=== PATIENT | female | born 1995 | race Two or more races ===

== ENCOUNTER → 2024-04-25 | Outpatient (CLI) | payer OTHER, SELFPAY ==
[2024-04-25 08:03] LABS: Collection Type, Urine Clean Catch; WBC,Urine 0 /hpf (0-5)
[2024-04-25 08:47] LABS: Basophils % (Auto) 0 % (0-2.5); Eosinophils # (Auto) 0.1 Thou/mm3 (0.0-0.5); Eosinophils % (Auto) 1 % (0-10); Hematocrit 41.4 % (36.0-46.0); Hemoglobin 14.2 g/dL (12.0-16.0); Immature Granulocytes % (Auto) 1 % (0-0); Immature Granulocytes Auto 0.04 Thou/mm3 (0.00-0.00); Lymphocytes # (Auto) 1.9 Thou/mm3 (1.0-4.8); Lymphocytes % (Auto) 26 % (10-50); Mean Corpuscular HGB Conc 34.3 g/dl (31.0-37.0); Mean Corpuscular Hemoglobin 28.5 pg (25.0-35.0); Mean Corpuscular Volume 83 fL (80-100); Monocytes # (Auto) 0.5 Thou/mm3 (0.0-0.8); Monocytes % (Auto) 7 % (0-12); Neutrophils # (Auto) 4.8 Thou/mm3 (1.8-7.7); Neutrophils % (Auto) 65 % (37-80); Nucleated Red Blood Cell % 0 /100 WBC (0); Platelet Count 240 Thou/mm3 (140-440); RDW Standard Deviation 38.6 fL (36.4-46.3); Red Blood Count 4.98 Miln/mm3 (4.00-5.20); White Blood Count 7.4 Thou/mm3 (3.6-11.0)
[2024-04-25 09:20] LABS: Bilirubin,Urine Negative (Negative); Blood,Urine Negative (Negative); Clarity,Urine Clear (Clear/Hazy); Color,Urine Colorless (Lt Yel-Yel); Culture Indicated,Urine Not Indicated; Glucose, Urine Negative (Negative); Ketones,Urine Negative (Negative); Leukocyte Esterase,Urine Negative (Negative); Nitrite,Urine Negative (Negative); PH,Urine 6.5 (5.0-7.0); Protein,Urine Negative (Neg - Trace); RBC,Urine 3 /hpf (0-3); Specific Gravity,Urine 1.006 (1.001-1.035); Squamous Epithelial Cell,Urine 3 /hpf (0-5); Urobilinogen,Urine Negative mg/dL (0.0-1.0)
[2024-04-25 11:37] LABS: Alanine Aminotransferase 24 U/L (10-49); Albumin, Serum 4.7 gm/dL (3.5-5.0); Alkaline Phosphatase 66 U/L (46-116); Anion Gap 8 (7-16); Aspartate Amino Transferase 20 U/L (0-34); BUN/Creatinine Ratio 17 Ratio (12-20); Bilirubin,Total 0.5 mg/dL (0.3-1.2); Blood Urea Nitrogen 12 mg/dL (9-23); Calcium 9.5 mg/dL (8.3-10.6); Calcium (Corrected) 9.5 mg/dL (8.5-10.1); Cardiac Risk Estimate 2.9 RATIO (3.7-5.6); Chloride 104 mMol/L (98-107); Cholesterol 117 mg/dL (132-200); Creatinine (Component) 0.7 mg/dL (0.6-1.3); Globulin 2.4 gm/dL (2.3-3.5); Glucose 96 mg/dL (74-106); HDL Cholesterol 40 mg/dL (40-60); LDL Cholesterol,Calculated 64 mg/dL (0-130); Osmolality,Calculated 275 (275-295); Potassium 4.4 mMol/L (3.4-5.1); Sodium 138 mMol/L (136-145); Thyroid Stimulating Hormone 2.23 uIU/mL (0.55-4.78); Total Protein 7.1 gm/dL (5.7-8.2); Triglycerides 63 mg/dL (30-150); eGFR > 60 See Note
== END | disposition home or self-care (01) ==
LOC: COPL 07:19
PROVIDERS: PCP Family Medicine; Referring Provider Physician Assistant; Visit Provider Physician Assistant
DX: Z00.00 Encounter for general adult medical examination without abnormal findings (principal); E55.9 Vitamin D deficiency, unspecified
CPT/HCPCS: 36415; 80053; 80061; 81001; 82306; 84443; 85025

== ENCOUNTER → 2024-06-24 | Outpatient (CLI) | payer OTHER, SELFPAY ==
[2024-06-24 08:51] LABS: Troponin I < 0.002 ng/mL (0.0-0.045)
== END | disposition home or self-care (01) ==
LOC: COPL 07:39
PROVIDERS: PCP Physician Assistant; Referring Provider Physician Assistant; Visit Provider Physician Assistant
DX: R07.9 Chest pain, unspecified (principal)
CPT/HCPCS: 36415; 84484

== ENCOUNTER 2025-03-07 15:05 | Inpatient (IN) | payer OTHER, SELFPAY ==
[2025-03-07 15:20] VITALS: BP 120/80; PULSE 76; RESP 18; TEMP 36.4; O2SAT 100; BMI 32.9
--- NOTE | 2025-03-07 15:24 | PD.EDDIZZY ---
ED Dizzyness RME/HPI General Chief Complaint: Dizziness Stated Complaint: DIZZY, VISION CHANGES Time Seen by Provider: 03/07/25 15:10 Arrival date/time: 03/07/25 15:05 RME / HPI RME / HPI Narrative: 29 year old female with no stated medical history presents to the ED sent by PCP Dr. Carson for evaluation of dizziness beginning at 11:00 AM today. States the dizziness began after standing up to use the restroom and remaining constant since. Described the dizziness as feeling unsteady and globally weak. Accompanied by muffled hearing to the left side and blurred vision to the left eye. Additionally reports feeling incoherent and slow . Noted her symptoms did not improve after work and consulted with her PCP. While in the office was advised to come to the ED for further evaluation and management. No history of similar symptoms. Denies fevers, chills, unilateral weakness, headache, abdominal pain, vomiting, diarrhea, or urinary symptoms. Related Data Home Medications ?Medication ?Instructions ?Recorded ?Confirmed vits no.130-ferrous fum 1 tab 03/18/21 27 mg iron-folic acid 800 mcg tablet ( Vitamin) Previous Rx's ?Medication ?Instructions ?Recorded benzocaine 20 %-menthol 0.5 % 1 spray topical TID #56 pumps 03/19/21 topical aerosol (Dermoplast (with menthol)) docusate sodium 100 mg capsule 100 mg PO BID #60 caps 03/19/21 (Colace) hydrocodone 5 mg-acetaminophen 325 1 tab PO Q6H PRN pain #30 tabs 03/19/21 mg tablet ibuprofen 600 mg tablet 600 mg PO Q6H PRN pain #60 tabs 03/19/21 lanolin 50 % topical ointment 1 applic topical TID PRN skin 03/19/21 irritation #15 tubes Allergies Allergy/AdvReac Type Severity Reaction Status Date / Time COBAN Allergy Intermediate Rash Uncoded 03/07/25 15:09 Review of Systems Review of Systems Systems Reviewed: All systems reviewed, normal except as documented Past Medical History Past Medical History NEUROLOGIC: Positive Migraine RESPIRATORY: Positive Asthma GASTROINTESTINAL: Positive Gastrointestinal Disorders (HX GASTROPARESIS) and Gastroesophageal Reflux Disease MUSCULOSKELETAL: Positive Fractures (MULTIPLE CHILD (ARMS AND WRIST, KNEE, ANKLE)) OTHER HISTORY: Positive Blood Transfusions ( CHILD, BORN PREMATURELY) and Chicken Pox Family History FAMILY HISTORY: Positive Family Respiratory Disorders (BROTHER HAS ASTHMA), Family Gastrointestinal Problems (GREAT GRANDMA AND GREAT GRANDPA HAS COLON CA), Family Cancer (COLON CA) and Family Surgery Social History SMOKING STATUS: Never smoker SECOND HAND EXPOSURE: No ED Exam Narrative Physical exam: Generally patient is alert oriented x 3 and in no obvious distress, head is normocephalic atraumatic, eyes show no vertical nystagmus without ophthalmoplegia with funduscopic exam bilaterally being unremarkable, neck shows no nuchal rigidity no bruit, heart regular rate and rhythm without murmurs rubs or gallops, lungs clear to auscultation equal bilaterally, abdomen is soft obese nontender, extremities show no edema, neurologic exam shows the patient have blurring of vision to the left eye without vision loss. Patient is somewhat unsteady on her feet but [id number] movements bilaterally are intact patient was complaining of some subjective left-sided facial numbness and numbness around the left side of her mouth. No weakness to any extremity. 5/5 muscle strength in bilateral upper and lower extremities. Course Quality Measures Suspected type of Stroke: Non Acute Last known well (date): 03/07/25 Last known well (time): 11:00 Tenecteplase given: Reason(s) TPA not given: Outside the time window not given stroke (stroke alert called at 15:20h ) Orders Category Date Time Status Bedside Blood Glucose NOW Care 03/07/25 15:26 Active Statement Processor NOW Care 03/07/25 15:26 Active Continuous Pulse Oximetry NOW Care 03/07/25 15:26 Completed EKG (ED ONLY) *Do not use* NOW Care 03/07/25 15:26 Completed In and Out Catheter NEEDED Care 03/07/25 15:26 Active Insert IV NOW Care 03/07/25 15:26 Active MRI Screening NOW Care 03/07/25 17:57 Active NIH Stroke Scale now Care 03/07/25 15:26 Active NPO NOW Care 03/07/25 15:26 Active Nurse Swallow Screen x1 Care 03/07/25 15:26 Active Consult to Neurology / Tele-Neurology Routine Cons 03/07/25 15:[address] angio stroke protocol Stat Exams 03/07/25 15:[address] stroke protocol Stat Exams 03/07/25 15:26 Completed EKG (ED Only) Stat Exams 03/07/25 15:26 Draft MR head/brain wo/w con Stat Exams 03/07/25 Ordered XR chest 1V portable Stat Exams 03/07/25 15:26 Completed Beta HCG,Quantitative Stat Lab 03/07/25 15:49 Completed CBC Stat Lab 03/07/25 15:49 Completed Comprehensive Metabolic Panel Stat Lab 03/07/25 15:49 Completed Drug Screen,Urine Stat Lab 03/07/25 16:12 Completed HCG Titer if Positive Stat Lab 03/07/25 15:49 Completed Magnesium Stat Lab 03/07/25 15:49 Completed Partial Thromboplastin Time Stat Lab 03/07/25 15:49 Completed Prothrombin Time with INR Stat Lab 03/07/25 15:49 Completed Troponin I Stat Lab 03/07/25 15:49 Completed Urinalysis, C/S if Indicated Stat Lab 03/07/25 16:12 Completed DiphenhydrAMINE INJ [Benadryl Inj] Med 03/07/25 16:59 Discontinued 50 mg IVP X1 ONE Ketorolac Inj [Toradol Inj] Med 03/07/25 16:59 Discontinued 30 mg IVP X1 ONE Labetalol* IV [Trandate IV] Med 03/07/25 15:24 Active 10 mg IVP Q15M PRN Metoclopramide Inj [Reglan Inj] Med 03/07/25 16:59 Discontinued 10 mg IVP X1 ONE Ondansetron Inj [Zofran Inj] Med 03/07/25 15:24 Active 4 mg IVP Q4HR PRN dexAMETHasone INJ [Decadron Inj] Med 03/07/25 16:59 Discontinued 10 mg IVP X1 ONE Oxygen Delivery NOW RT 03/07/25 15:26 Active Vital Signs Vital signs: Vital Signs Temperature 97.6 F 03/07/25 15:20 Pulse Rate 76 03/07/25 15:20 Respiratory Rate 18 03/07/25 15:20 Blood Pressure 120/80 03/07/25 15:20 Pulse Oximetry (%) 100 03/07/25 15:20 Oxygen Delivery Method Room Air 03/07/25 15:20 Pulse ox is 100% on room air which is adequate. Dizziness MDM Narrative MDM Narrative:: I, Sammie Pope, am scribing for and in the presence of Dr. Schmitt. Blood sugar was 98. Stroke alert was called. Head CT was negative. CT angio of the head and neck was negative. Stroke neurologist recommended giving the patient a migraine cocktail even though the patient does not have headache. Patient was given Reglan 10 mg IV, Benadryl 50 mg IV, Toradol 30 mg IV and Decadron 10 mg IV. The patient is still having some mild blurring of vision to the left eye and left-sided facial numbness. Recommendation from the stroke neurologist was to admit this patient to hospital to undergo MRI with and without contrast to assess for stroke versus multiple sclerosis. Patient will be admitted to the hospital for further treatment and evaluation. I did discuss this case with the hospitalist. Differential diagnosis: Complex migraine, stroke, multiple sclerosis Patient data External records reviewed:: [facility] previous records Clinical information provided by:: patient Social determinants that could affect healthcare access:: none Patient has the following chronic illnesses:: No chronic medical hx reported How is presenting disease/condition affected by chronic disease/condition?: exacerbated by Evaluation data The following diagnostics were reviewed and interpreted by me:: lab results Lab and/or radiology exams considered but not ordered:: None Interpretation Summary: Ordering Physician: Vitaliy Schmitt DO Date of Service: 03/07/25 Procedure(s): CT stroke protocol Accession Number(s): [id number] cc: Des Camargo MD; Vitaliy Schmitt DO~ Examination: CT brain head without contrast. 2-D sagittal coronal reconstructions Date and time of exam: March 07, 2025, 1534 hours INDICATIONS: Stroke alert, onset focal neurologic deficit today CTDI: vol (mGy): 49.5 DLP: (mGycm): 998 Technique: Multiple CT axial sections of the brain have been obtained, 5 mm slice thickness. Contrast has not been administered. 2-D sagittal, coronal reconstructions have been obtained Low dose protocols were performed. One or more of the following dose reduction techniques were used; automated exposure control, adjustment of the mA and/or KV according to patient size, use of iterative reconstruction technique. Findings: No significant ventricular enlargement. Intra-axial or extra-axial hemorrhage density is not seen. No mass effect or midline shift Basal cisterns are not remarkable. Fourth ventricle is midline. Cranial vault intact. Impression: Negative for acute hemorrhage, mass effect or midline shift Dictated By: Des Camargo MD Signed By: <Electronically signed by Des Camargo MD in OV> 03/07/25 1536 Ordering Physician: Vitaliy Schmitt DO Date of Service: 03/07/25 Procedure(s): CT angio stroke protocol Accession Number(s): [id number] cc: Des Gold MD; Vitaliy Schmitt DO; Radha Rivera PA-C~ Examination: CTA carotids with intravenous contrast CTA brain, head with intravenous contrast. 2-D sagittal, coronal reconstructions. 3-D reconstructions. Exam date and time: 03/07/2025 at 3:58 p.m. CTDI: vol (mGy) 26.7 DLP: (mGycm) 468 Technique: Multiple CTA axial brain, head carotid images post intravenous contrast injection 75 cc, [id number]. 2-D sagittal, coronal reconstructions. 3-D reconstructions, 3-D post processing including vascular maximum intensity projection images. Low dose protocols were performed. One or more of the following dose reduction techniques were used; automated exposure control, adjustment of the mA and/or KV according to patient size, use of iterative reconstruction technique. Findings: There is beautiful CT visualization of both right and left vertebral arteries from their origin in the base of the neck, up through the foramina transversarium, up to their junction forming the basilar artery. All of the branches of the basilar artery are well seen and normal, its termination into the right and left posterior cerebral arteries is normal. In the anterior circulation, there is beautiful visualization of both right and left common carotid arteries and their bifurcations, as well as the internal and external carotid arteries throughout the neck. Their appearance is perfectly normal on both sides Within the cerebrum, the right and left anterior cerebral arteries are very nicely visualized and appear perfectly normal. The cavernous portions of both right and left internal carotid arteries are due to fluid demonstrated and appear normal. The proximal and peripheral portions of both right and left middle cerebral arteries appear normal. All of the cerebral veins appear normal in appearance. IMPRESSION: 1. There is excellent visualization of the anterior and posterior circulation extending from the origin of the common carotid arteries and vertebral arteries in the upper chest, throughout the neck and throughout the cranial vault. 2 all of these arteries appear perfectly normal 3. All of the major cerebral veins appear normal, there are also very well seen on this high quality study. Dictated By: Des Gold MD Signed By: <Electronically signed by Des Gold MD in OV> 03/07/25 1630 Medications / Prescriptions Medications or Prescriptions considered but not ordered:: None Medication administrations:: Medication Administration History Labetalol HCl (Labetalol Inj 5 Mg/Ml Vial 4 Ml) 10 mg IVP Q15M PRN PRN Reason: hypertension Ondansetron HCl (Ondansetron Inj 2 Mg/Ml Inj 2 Ml) 4 mg IVP Q4HR PRN PRN Reason: NAUSEA OR VOMITING Stop: 04/06/25 15:23 Discontinued Medications Dexamethasone Sodium Phosphate (Dexamethasone Sod Phos Inj 10 Mg/Ml Vial) 10 mg IVP X1 ONE Stop: 03/07/25 17:00 Last Admin: 03/07/25 17:56 Dose: 10 mg Documented By: Diphenhydramine HCl (Diphenhydramine Inj 50 Mg/Ml Vial) 50 mg IVP X1 ONE Stop: 03/07/25 17:00 Last Admin: 03/07/25 17:53 Dose: 50 mg Documented By: Ketorolac Tromethamine (Ketorolac Inj 30 Mg/Ml Vial) 30 mg IVP X1 ONE Stop: 03/07/25 17:00 Metoclopramide HCl (Metoclopramide Inj 5 Mg/Ml Vial 2 Ml) 10 mg IVP X1 ONE; Protocol Stop: 03/07/25 17:00 Last Admin: 03/07/25 17:58 Dose: 10 mg Documented By: See above Consultations Consultation(s) initiated? (list below): Yes Consultation #1 (Physician, Specialty, Details): I spoke with teleneurologist States not a TNK candidate 2/2 LKW > 4.5 hours. Time: 16:45 Diagnosis Most likely diagnosis given after review of the tests above:: none Admission Indicated Admission indicated?: indicated Admission Request Was there a request for admission?: Yes Admission Attestation Admission request attestation: Discussed case with [] from Hospitalist service regarding admission. Discussed patients ED course, exam findings, labs, and radiology results. The Hospitalist [agrees,declines] to accept the patient for admission. Disposition Plan Disposition Plan: Admit Critical Care Time Critical Care Time Critical Care Time: Yes Total Critical Care Time (min.): 35 Attestation: Excluding other billable procedures Discharge Plan Plan Patient Disposition: Admit Acute Care w/in Hospital Prescriptions/Referrals Prescriptions/Med Rec: No Action Vitamin 27 mg iron- 800 mcg tablet 1 tab Dermoplast (with menthol) 20-0.5 % aerosol 1 spray topical TID Qty: 56 0RF docusate sodium [Colace] 100 mg capsule 100 mg PO BID Qty: 60 0RF hydrocodone-acetaminophen 5-325 mg tablet 1 tab PO Q6H MDD 6 PRN (Reason: pain) Qty: 30 0RF ibuprofen 600 mg tablet 600 mg PO Q6H PRN (Reason: pain) Qty: 60 0RF lanolin 50 % ointment 1 applic topical TID PRN (Reason: skin irritation) Qty: 15 0RF Referrals: Radha Rivera PA-C [Primary Care Provider] - In 1 week Problem List Clinical Impression: Diplopia, Paresthesia Patient/Caregiver Discharge Instructions Print Language: Lebanese Stand Alone Forms: Janine Award Info., Patient Portal Info Letter
--- NOTE | 2025-03-07 15:26 | XR_ITS ---
Portable upright chest film on 03/07/2025 at 4:31 p.m. INDICATION: None given No comparison views are available Findings the heart and mediastinum and pulmonary arteries all appear radiographically normal both lungs are well expanded and clear there is no pleural fluid. Impression: good-quality portable chest film entirely normal.
--- NOTE | 2025-03-07 15:26 | EKG_ITS ---
[facility] Test Date: 2025-03-07 Pat Name: KATHLEEN HERNANDEZ Department: Room: - Gender: Female Tag Maker: : 1995 Requested By: Vitaliy Mendosa Order Number: [id number] Reading MD: Vitaliy Mendosa Measurements Intervals Clay Rate: 70 P: 45 MA: 172 QRS: 40 QRSD: 81 T: 38 QT: 367 QTc: 396 Interpretive Statements SINUS RHYTHM WITH SINUS ARRHYTHMIA POSSIBLE LEFT ATRIAL ENLARGEMENT [-0.1mV P-WAVE IN V1/V2] No previous ECG available for comparison /store/S0/[id number].pdf
[2025-03-07 16:00] LABS: Basophils # (Auto) 0.1 Thou/mm3 (0.0-0.2); Basophils % (Auto) 1 % (0-2.5); Eosinophils # (Auto) 0.1 Thou/mm3 (0.0-0.5); Eosinophils % (Auto) 1 % (0-10); Hematocrit 45.6 % (36.0-46.0); Hemoglobin 15.8 g/dL (12.0-16.0); Immature Granulocytes Auto 0.02 Thou/mm3 (0.00-0.00); Lymphocytes # (Auto) 2.6 Thou/mm3 (1.0-4.8); Lymphocytes % (Auto) 28 % (10-50); Mean Corpuscular HGB Conc 34.6 g/dl (31.0-37.0); Mean Corpuscular Hemoglobin 28.3 pg (25.0-35.0); Mean Corpuscular Volume 82 fL (80-100); Monocytes # (Auto) 0.8 Thou/mm3 (0.0-0.8); Monocytes % (Auto) 9 % (0-12); Neutrophils # (Auto) 5.6 Thou/mm3 (1.8-7.7); Neutrophils % (Auto) 61 % (37-80); Nucleated Red Blood Cell # 0.00 Thou/mm3 (0.00-0.00); Nucleated Red Blood Cell % 0 /100 WBC (0); Platelet Count 248 Thou/mm3 (140-440); RDW Standard Deviation 36.7 fL (36.4-46.3); Red Blood Count 5.58 Miln/mm3 (4.00-5.20); White Blood Count 9.3 Thou/mm3 (3.6-11.0)
[2025-03-07 16:06] VITALS: PULSE 78
[2025-03-07 16:16] LABS: INR 1.0 (0.9-1.3); Partial Thromboplastin Time 29.9 Seconds (22.0-36.0); Prothrombin Time 10.4 Seconds (9.0-12.2)
[2025-03-07 16:18] VITALS: PULSE 78; RESP 18; RESP 98
[2025-03-07 16:27] LABS: HCG Titer if Positive Negative
[2025-03-07 16:29] LABS: Alanine Aminotransferase 18 U/L (10-49); Albumin, Serum 5.4 gm/dL (3.5-5.0); Albumin/Globulin Ratio 1.7 (1.2-2.2); Alkaline Phosphatase 83 U/L (46-116); Anion Gap 12 (7-16); Aspartate Amino Transferase 31 U/L (0-34); BUN/Creatinine Ratio 14 Ratio (12-20); Beta HCG,Quantitative < 1 mIU/mL (<5.0); Bilirubin,Total 0.3 mg/dL (0.3-1.2); Blood Urea Nitrogen 10 mg/dL (9-23); Calcium 9.8 mg/dL (8.3-10.6); Calcium (Corrected) 9.8 mg/dL (8.5-10.1); Carbon Dioxide 24.8 mMol/L (20.0-31.0); Chloride 105 mMol/L (98-107); Creatinine (Component) 0.7 mg/dL (0.6-1.3); Estimated Creatinine Clearance 133.6 mL/min (>60); Globulin 3.2 gm/dL (2.3-3.5); Glucose 94 mg/dL (74-106); Magnesium 2.1 mg/dL (1.6-2.6); Osmolality,Calculated 282 (275-295); Potassium 4.5 mMol/L (3.4-5.1); Sodium 142 mMol/L (136-145); Total Protein 8.6 gm/dL (5.7-8.2); Troponin I < 0.002 ng/mL (0.0-0.045); eGFR > 60 See Note
[2025-03-07 16:39] LABS: Collection Type, Urine Voided; RBC,Urine 0 /hpf (0-3)
--- NOTE | 2025-03-07 16:47 | ESCONSULT_ITS ---
Tele Neuro Consultation Consultation Date 03/07/25 Most Recent Vital Signs Last Vital Signs Temp 97.6 F 03/07/25 15:20 Pulse 78 03/07/25 16:18 Resp 18 03/07/25 16:18 BP 120/80 03/07/25 15:20 Pulse Ox 100 03/07/25 15:20 O2 Del Method Room Air 03/07/25 15:20 Laboratory-Coagulation Panel PT 10.4 Seconds (9.0-12.2) 03/07/25 15:49 INR 1.0 (0.9-1.3) 03/07/25 15:49 APTT 29.9 Seconds (22.0-36.0) 03/07/25 15:49 Consultation Narrative [facility] Patient Name:???Sigrid Ma Date of :???1995 Identification Number:??? Date of Service:???03/07/2025 15:27:24 Diagnosis:?R42 - Dizziness/ Vertigo/ Giddiness Impression: ?29yo woman w/PMH of migraines p/w dizziness, blurry vision on 03/07/25. She states she was at work at 10:00 when she became dizzy, followed by left sided blurry vision. She waited a while and then her dizziness got worse and she almost fainted so she came to the ED. She feels drowsy and out of it. She had a milder episode in the past about a day after giving berth to her son but there was no diagnosis. Her typical migraine involves vision loss followed by headache, and will take ibuporfen 800mg but it doesn't work. Sometimes drinking soda and waiting a few hours helps. She otherwise denies complaints. NIHSS 1 for left sided sensory loss. CT Head has no acute findings. Pt is not a candidate for thrombolytics due to being out of the 4.5 hour window. CTA Head/Neck shows no acute large vessel occlusion. Presentation is concerning for complex migraine, but unable to rule out an acute small vessel ischemic stroke or demyelinating disorder at this time. Plan listed below was recommended to the ED physician by phone. Our recommendations are outlined below. Recommendations: ? Neuro Checks (Q4) ?Can give any combo of toradol 30mg IV, benadryl 25mg IV, reglan 10mg IV, and normal saline now to abort migraine ?Optimize blood pressure, temp, glucose ?If no improvement with migraine medication, obtain MRI Brain w/wo contrast to rule out acute stroke/demyelination and start aspirin 81mg daily Sign Out: ? Discussed with Emergency Department Provider Advanced Imaging: CTA Head and Neck Completed. LVO:No Patient is not a candidate for RAFAELA Metrics: Last Known Well: 03/07/2025 10:00:00 Arrival Time: 03/07/2025 15:05:00 Activation Time: 03/07/2025 15:27:24 Initial Response Time: 03/07/2025 15:29:00Symptoms: dizziness, blurry vision. Initial patient interaction: 03/07/2025 15:43:00 NIHSS Assessment Completed: 03/07/2025 15:49:23Patient is not a candidate for Thrombolytic. Thrombolytic Medical Decision: 03/07/2025 15:49:24Patient was not deemed candidate for Thrombolytic because of following reasons: LKW outside 4.[address] Head: I personally reviewed all the CT images that were available to me and it showed: no acute findings Primary Provider Notified of Diagnostic Impression and Management Plan on: 03/07/2025 16:44:00 History of Present Illness:Patient is a 29 year old Female. Patient was brought by private transportation with symptoms of dizziness, blurry vision. 29yo woman w/PMH of migraines p/w dizziness, blurry vision on 03/07/25. She states she was at work at 10:00 when she became dizzy, followed by left sided blurry vision. She waited a while and then her dizziness got worse and she almost fainted so she came to the ED. She feels drowsy and out of it. She had a milder episode in the past about a day after giving berth to her son but there was no diagnosis. Her typical migraine involves vision loss followed by headache, and will take ibuporfen 800mg but it doesn't work. Sometimes drinking soda and waiting a few hours helps. She otherwise denies complaints. Past Medical History: Other PMH:? see hpi Medications: No Anticoagulant use? No Antiplatelet use Reviewed EMR for current medications Allergies:? Reviewed Social History: Drug Use: No Family History: There is no family history of premature cerebrovascular disease pertinent to this consultation ROS : 14 Points Review of Systems was performed and was negative except mentioned in HPI. Past Surgical History: There Is No Surgical History Contributory To Today?s Visit Examination: BP(/),?Pulse(80), 1A: Level of Consciousness - Alert; keenly responsive?+ 0 1B: Ask Month and Age - Both Questions Right?+ 0 1C: Blink Eyes & Squeeze Hands - Performs Both Tasks?+ 0 2: Test Horizontal Extraocular Movements - Normal?+ 0 3: Test Visual Leblanc - No Visual Loss?+ 0 4: Test Facial Palsy (Use Grimace if Obtunded) - Normal symmetry?+ 0 5A: Test Left Arm Motor Drift - No Drift for 10 Seconds?+ 0 5B: Test Right Arm Motor Drift - No Drift for 10 Seconds?+ 0 6A: Test Left Leg Motor Drift - No Drift for 5 Seconds?+ 0 6B: Test Right Leg Motor Drift - No Drift for 5 Seconds?+ 0 7: Test Limb Ataxia (FNF/Heel-Brice) - No Ataxia?+ 0 8: Test Sensation - Mild-Moderate Loss: Less Sharp/More Dull?+ 1 9: Test Language/Aphasia - Normal; No aphasia?+ 0 10: Test Dysarthria - Normal?+ 0 11: Test Extinction/Inattention - No abnormality?+ 0 NIHSS Score:?1 Pre-Morbid Modified D[place] Scale: 0 Points = No symptoms at all Spoke with :?BARRETT Schmitt This consult was conducted in real time using interactive audio and video technology. Patient was informed of the technology being used for this visit and agreed to proceed. Patient located in hospital and provider located at home/office setting. Patient is being evaluated for possible acute neurologic impairment and high probability of imminent or life-threatening deterioration. I spent total of 35 minutes providing care to this patient, including time for face to face visit via telemedicine, review of medical records, imaging studies and discussion of findings with providers, the patient and/or family. Dr Javier Caldwell [facility] For Inpatient follow-up with [facility] physician please call [facility] at . As we are not an outpatient service for any post hospital discharge needs please contact the hospital for assistance. If you have any questions for the [facility] physicians or need to chad nsult for clinical or diagnostic changes please contact us via [facility] at . Non-radiologist review of imaging performed to assist with emergent clinical decision-making. Remote physician workstations do not possess the same resolution, calibration, or diagnostic capabilities as hospital-based radiology reading stations, and formal radiologist read is necessary. Signature :Juliocesar Caldwell
[2025-03-07 17:00] LABS: Bacteria,Urine Rare; Bilirubin,Urine Negative (Negative); Blood,Urine Negative (Negative); Clarity,Urine Clear (Clear/Hazy); Color,Urine Colorless (Lt Yel-Yel); Culture Indicated,Urine Not Indicated; Glucose, Urine Negative (Negative); Ketones,Urine Negative (Negative); Leukocyte Esterase,Urine Negative (Negative); Nitrite,Urine Negative (Negative); PH,Urine 7.0 (5.0-7.0); Protein,Urine Negative (Neg - Trace); Specific Gravity,Urine 1.009 (1.001-1.035); Squamous Epithelial Cell,Urine 1 /hpf (0-5); Urobilinogen,Urine Negative mg/dL (0.0-1.0); WBC,Urine 1 /hpf (0-5)
[2025-03-07 17:33] LABS: Amphetamine/Methamp Scrn,U Negative (Negative); Barbiturate Screen,Urine Negative (Negative); Benzodiazepines Screen,Urine Negative (Negative); Benzoylecgonine Screen, Ur Negative (Negative); Fentanyl Screen,Urine Negative (Negative); Opiate Screen,Urine Negative (Negative); THC Screen,Urine Negative (Negative)
[2025-03-07 17:52] VITALS: BP 129/75; PULSE 82; RESP 19; TEMP 36.5; O2SAT 100
[2025-03-07] MEDS: METOCLOPRAMIDE INJ 5 MG/ML VIAL 2 ML 10 MG IVP (17:58)
--- NOTE | 2025-03-07 18:11 | ECHO_ITS ---
Patient Info Name: Sigrid Ma Age: 29 years : 1995 Gender: Female Ht: 165 cm Wt: 90 kg BSA: 2.06 m2 BP: 118 / 70 mmHg HR: 88 bpm Exam Date: 03/08/2025 9:13 AM Admit Date: 03/07/2025 Site: [facility] Room Number: [id number] Patient Status: I Exam Type: CA echo doppler complete [employer] Reviewer: Aleida Green Ordering Physician: Jf Boston Study Info Indications Stroke rule out, with bubble study - Contrast/Agitated Saline Contrast/Ag. Saline: Agitated Saline Amount: --- ml Primary Location: S2NX Left Ventricular Outflow Tract Name Value Normal LVOT 2D LVOT Diameter 1.9 cm LVOT Doppler LVOT Peak Velocity 160 cm/s LVOT Mean Gradient 5 mmHg LVOT VTI 30 cm LVOT VTI/AV VTI Ratio 0.8 LVOT Stroke Volume 85 ml Pulmonic Valve Name Value Normal PV Doppler PV Peak Velocity 134 cm/s PV Regurgitation Doppler SD Peak End Diastolic Velocity 103 cm/s Mitral Valve Name Value Normal MV Doppler MV Decel Thayer 831 cm/s2 MV PHT 34 ms MV Area (PHT) 6.5 cm2 4.0-5.0 MV Diastolic Function MV E Peak Velocity 97 cm/s MV A Peak Velocity 87 cm/s MV E/A 1.1 MV Annular TDI MV Septal e' Velocity 11.7 cm/s MV E/e' (Septal) 8.2 MV Lateral e' Velocity 13.8 cm/s MV E/e' (Lateral) 7.0 MV e' Average 12.75 cm/s MV E/e' (Average) 7.6 Tricuspid Valve Name Value Normal TV Regurgitation Doppler TR Peak Velocity 232 cm/s Estimated PAP/RSVP RA Pressure 3 mmHg <=5 PA Systolic Pressure 25 mmHg <36 RV Systolic Pressure 25 mmHg <36 Aortic Valve Name Value Normal AV 2D/MM AV Cusp Sep (MM) 1.3 cm AV Doppler AV Peak Velocity 191 cm/s AV Mean Gradient 6 mmHg AV VTI 37 cm AV Area (Cont Eq VTI) 2.3 cm2 >=3.0 AV Area (Cont Eq Redd) 2.4 cm2 AV DI (Redd) 0.84 AV Regurgitation 2D LVOT Area 2.8 cm2 Ventricles Name Value Normal LV Dimensions 2D/MM IVS Diastolic Thickness (2D) 0.7 cm 0.6-0.9 LVID Diastole (2D) 4.9 cm 3.8-5.2 LVIW Diastolic Thickness (2D) 0.8 cm 0.6-0.9 LVID Systole (2D) 3.1 cm 2.2-3.5 LVOT Diameter 1.9 cm LV Mass (2D Cubed) 120.82 g 67.00-162.00 LV Mass Index (2D Cubed) 59 g/m2 43-95 Relative Wall Thickness (2D) 0.33 <=0.42 IVS/LVIW Diastolic Thickness (2D) 0.88 0.00-1.50 LV Fractional Shortening/Ejection Fraction 2D/MM LV Fractional Shortening (2D) 37 % 27-45 LV EF (2D Teichholz) 66 % Atria Name Value Normal LA Dimensions LA Volume (4C A-L) 61 ml LA Volume (BP A-L) 64 ml Left Ventricle Left ventricular chamber dimension is normal. Unable to accurately determine LVEF. There is normal geometry noted in the left ventricle. Left ventricular segmental wall motion is normal. There is normal diastolic function in the left ventricle. Right Ventricle Right ventricular chamber dimension is normal. Right ventricular systolic function is normal. Left Atrium Left atrial chamber dimension is normal. Right Atrium Right atrial chamber dimension is normal. Aortic Valve The aortic valve is trileaflet. There is no aortic valve sclerosis. There is no aortic valve stenosis with a peak velocity of 191 cm/s, mean gradient of 6 mmHg, and aortic valve area of 2.3 cm2. There is no aortic valve regurgitation. Pulmonic Valve The pulmonic valve is normal. There is no pulmonic valve stenosis. There is no pulmonic regurgitation. Mitral Valve The mitral valve has normal leaflets. There is no mitral valve stenosis. There is trace mitral valve regurgitation. Tricuspid Valve The tricuspid valve leaflets are normal. There is no tricuspid valve stenosis. There is trace tricuspid valve regurgitation. No pulmonary hypertension, estimated pulmonary arterial systolic pressure is 25 mmHg and systemic blood pressure of 118 mmHg in systole. Pericardium/Pleural The pericardium appears normal. There is trivial pericardial effusion with no tamponade. No pleural effusion visualized. Inferior Vena Cava Normal inferior vena cava with >50% collapse upon inspiration consistent with normal right atrial pressure, 3 mmHg. Aorta The aortic measurements are indexed to age and body surface area. The aortic root at the sinus of Valsalva is not well visualized. The prox ascending aorta is not well visualized. Summary 1. Negative bubble study but suboptimal images. Consider EDUARDO if High index of clinical suspicion of embolic stroke. 2. Left ventricle size is normal and systolic function is normal. Estimated ejection fraction is 60-65%. There is normal diastolic function. 3. Right ventricle chamber size is normal and systolic function is normal. Estimated RVSP is 25 mmHg. 4. There is trace mitral and tricuspid valve regurgitation. 5. There is trivial pericardial effusion with no tamponade. Report Signatures Finalized by Giacomo Gutierrez on 03/08/2025 06:41 PM
--- NOTE | 2025-03-07 18:33 | ESHP_ITS ---
Documentation for date of: 03/07/25 HPI History of Present Illness Chief complaint: Dizziness and Lt Sided weakness History of present illness: HPI: A 29-year-old female patient with past medical history reportedly of migraine, seasonal allergy came to the ED after she started to experience dizziness today at 11 in the morning. She reported that she was sitting finishing some homework and when she is stood up she started to feel dizzy associated with left-sided blurry vision. She reported that her dizziness was more like unsteadiness and was not spinning sensation she also reported that she felt numbness in her left sided face. She reported at that time she also became foggy and was unable to think clearly she also reported muffled hearing on the left side. After few minutes her symptoms has improved however the dizziness and blurry vision return again and also more dizziness. Reported also at that time she started to feel numbness on the left side of her body and also weakness however she denied falling down. Her symptoms continue to worsen in which she went to her physician Dr. Carson who recommended the patient to come to the ED for stroke rule out. Patient denied any deviation, denied any dysphagia, nausea or vomiting, headache, abdominal pain, diarrhea or constipation, skin rash. Home medications: Allerga ED course: At the ED patient Stroke alert was initiated, vitals all within normal limits saturating 100% on room air, her labs were normal with hemoglobin of 15.8, WBC of 9.3, electrolytes and coagulation panel within normal limits, normal kidney functions, and negative test. U tox was also negative. Stat CT scan of the head and head and neck CT angio all were negative for any acute hemorrhage or mass effect and all major blood vessels were visualized completely. Consultation to the teleneurologist recommended to admit the patient for concern of complex migraine however unable to rule out acute small vessel ischemic stroke or demyelinating disorder such as multiple sclerosis. Patient was given migraine cocktail including Benadryl, dexamethasone 10 mg, metoclopramide 10 mg IV push in which the patient reported improvement of her symptoms however she still has some blurry vision. And numbness of her left side of the face. PMH: Migraine, seasonal allergy PSX: None Social hx: Alcohol: Denied Tobacco: Denied Illicit drugs: Denied Allergies: No known allergies Review of Systems Review of Systems Systems Reviewed: All systems reviewed, normal except as documented Exam Vital Signs Temp Pulse Resp BP Pulse Ox O2 Del Method 97.7 F 82 19 129/75 100 Room Air 03/07/25 17:52 03/07/25 17:52 03/07/25 17:52 03/07/25 17:52 03/07/25 17:52 03/07/25 17:52 Narrative Exam GEN: AOx3, able to speak full sentences. No mouth deviation HEENT: NC/AC, PERRLA, left eye lateral visual field defect, Oral mucosa dry, neck supple CVS: RRR, S1-S2 present, no murmurs appreciated RESP: CTAB GI: soft,non distended, non tender, NBS MSK: able to move all 4 limbs, no drift, noticed some very mild weakness on the left side movement against resistance. 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 Results: Labs 03/08/25 04:20 03/08/25 04:20 Labs: Short CBC 03/07/25 Range/Units 15:49 WBC 9.3 (3.6-11.0) Thou/mm3 Hgb 15.8 (12.0-16.0) g/dL Hct 45.6 (36.0-46.0) % Plt Count 248 (140-440) Thou/mm3 BMP 03/07/25 15:49 Sodium 142 Potassium 4.5 Chloride 105 Carbon Dioxide 24.8 BUN 10 Creatinine 0.7 Glucose 94 Calcium 9.8 Cardiac Enzymes 03/07/25 Range/Units 15:49 Troponin I < 0.002 (0.0-0.045) ng/mL Liver Function 03/07/25 Range/Units 15:49 Total Bilirubin 0.3 (0.3-1.2) mg/dL AST 31 (0-34) U/L ALT 18 (10-49) U/L Alkaline Phosphatase 83 (46-116) U/L Albumin 5.4 H (3.5-5.0) gm/dL Urine 03/07/25 Range/Units 16:12 Urine Color Colorless A (Lt Yel-Yel) Urine Clarity Clear (Clear/Hazy) Urine pH 7.0 (5.0-7.0) Ur Specific [place] 1.009 (1.001-1.035) Urine Protein Negative (Neg - Trace) Urine Glucose (UA) Negative (Negative) Quality Measures Quality Measures stroke (stroke alert called at 15:20h ) Suspected type of Stroke: Non Acute Last known well (date): 03/07/25 Last known well (time): 11:00 Tenecteplase given: Reason(s) Tenecteplase not given: Outside the time window not given Rehab services: PT evaluation ordered and Speech Language Pathology eval ordered VTE Prophylaxis: pharmaceutical Antithrombotic by day 2:: not indicated (describe) Statin ordered: n/a Anticoagulation ordered for A-fib or flutter (current or hx): not indicated Medications Home Medications and Allergies Allergies Allergy/AdvReac Type Severity Reaction Status Date / Time COBAN Allergy Intermediate Rash Uncoded 03/07/25 15:09 Visit Medications Acetaminophen (Acetaminophen 325 Mg Tablet) 650 mg PO Q6H PRN PRN Reason: PAIN OR FEVER > 100.4 Stop: 04/06/25 18:08 Labetalol HCl (Labetalol Inj 5 Mg/Ml Vial 4 Ml) 10 mg IVP Q15M PRN PRN Reason: hypertension Ondansetron HCl (Ondansetron Inj 2 Mg/Ml Inj 2 Ml) 4 mg IVP Q4HR PRN PRN Reason: NAUSEA OR VOMITING Stop: 04/06/25 15:23 Discontinued Medications Dexamethasone Sodium Phosphate (Dexamethasone Sod Phos Inj 10 Mg/Ml Vial) 10 mg IVP X1 ONE Stop: 03/07/25 17:00 Last Admin: 03/07/25 17:56 Dose: 10 mg Diphenhydramine HCl (Diphenhydramine Inj 50 Mg/Ml Vial) 50 mg IVP X1 ONE Stop: 03/07/25 17:00 Last Admin: 03/07/25 17:53 Dose: 50 mg Ketorolac Tromethamine (Ketorolac Inj 30 Mg/Ml Vial) 30 mg IVP X1 ONE Stop: 03/07/25 17:00 Metoclopramide HCl (Metoclopramide Inj 5 Mg/Ml Vial 2 Ml) 10 mg IVP X1 ONE; Protocol Stop: 03/07/25 17:00 Last Admin: 03/07/25 17:58 Dose: 10 mg Assessment & Plan Plan Summary:A 29-year-old female patient with past medical history reportedly of migraine, seasonal allergy came to the ED after she started to experience dizziness today at 11 in the morning. She reported that she was sitting finishing some homework and when she is stood up she started to feel dizzy associated with left-sided blurry vision. Patient was admitted for workup of stroke, complex migraine and multiple sclerosis work up. Assessment and plan #Stroke rule out #Complex migraine Patient presented with dizziness, blurry vision, foggy memory, left-sided weakness of the face and left side of the body. Vitally stable, patient does not have any chronic condition, CT angio head and neck and brain CT all were negative for any hemorrhage or mass effect. Patient denied using any street drugs. Has never had such symptoms in the past. Most likely her symptoms is due to her migraine however neurologist recommended to admit the patient for workup to rule out stroke and multiple sclerosis. It was recommended by the neurologist to give her migraine cocktail which improved her symptoms significantly except that she still has some weakness against resistance on the left side, mild blurry vision. On my examination I noticed that the patient has some visual field defect in which she was unable to identify numbers on the lateral visual field of the left eye. However there was no redness, and her pupils were equal and reactive. Plan ? Admit patient to telemetry ? Consult neurologist Dr Munson was sent, pending recommendations ? Started the patient on aspirin 81 mg p.o. as per the neurologist's recommendation as the patient did not improve. ? Neurochecks every 4 hours ? Seizure precautions ? Physical therapy evaluation ? Echocardiogram with bubble study ? Brain MRI with and without contrast ? Speech therapy evaluation ? Aspiration precautions ? Bedside swallow eval #History of seasonal allergy Patient reported that she has multiple episodes of sneezing and runny nose secondary to her allergies. She has taken [id number] Loly Plan ? Hold home medication for now we will continue to monitor Hospital Maintenance: FEN: Regular diet after passing bedside swallow eval DVT ppx: Heparin subcu GI ppx: Not indicated IV lines: PIV Ace: None Code status: Full code Dispo: Admit to telemetry - Patient's plan and care discussed with my attending, Dr. William Carias MD Internal Medicine PGY-3 Attending Provider Attestation/Addendum I have examined the patient, reviewed labs and imaging findings, discussed the case with the resident(s), and reviewed entered orders. I agree with the plan of care as outlined in this note, with these additional summaries/recommendations: After examination of the patient and review of the clinical data, I feel that this patient needs admission to the hospital for further treatment and evaluation. Patient is a 29-year-old female with a medical history of migraine headaches and seasonal allergies who presents to [facility] emergency department on 03/07/2025 with chief complaint of dizziness. Patient was seen by teleneurology in the emergency room and recommended migraine headache cocktail which was given and no improvement in dizziness/headache. Patient also appears to have some left-sided weakness. Per neurology, if no improvement patient should be admitted for CVA rule out. Thus patient will be admitted to the hospital we will order MRI brain and start aspirin plus statin for now. Consult in-house neurology. Order vascular risk factors. Patient updated on the plan and in agreement. All questions answered to satisfaction. Please see residents note for additional details and management. Dr. William MD
[2025-03-07 19:34] VITALS: BP 112/68; PULSE 84; RESP 18; TEMP 36.9; O2SAT 97
[2025-03-07] MEDS: ASPIRIN EC 81 MG TABEC PO (19:48)
[2025-03-07] MEDS: SODIUM CHLORIDE 0.9% 1000 ML 1,000 ML 75 ML IV (19:48)
[2025-03-07] MEDS: HEPARIN SOD INJ 5000 UNIT/ML VIAL SC (22:44)
[2025-03-08] VITALS: BP 116/67; PULSE 82; PULSE 94; RESP 12; TEMP 36.1; O2SAT 97
--- NOTE | 2025-03-08 | XR_ITS ---
Examinations: MRI Brain without intravenous contrast. MRA brain without intravenous contrast. MRA carotids without intravenous contrast 3-D vascular reconstructions Date and time of exam: March 08, 2025, 0730 hours INDICATIONS: Dizziness and left-sided blurred vision onset yesterday numbness in the left side of the face Technique: Multiple axial and sagittal images of the brain have been obtained MRA brain carotid images without contrast obtained, including 3-D postprocessing, vascular maximum intensity projection images Findings: Sellaturcica is not enlarged. The optic chiasm and infundibular stalk are not remarkable. Prepontine and interpeduncular cisterns are not enlarged. No localized enlargement of the medulla or jaciel. Fourth ventricle and cerebellar tonsils normal in position. Subacute hemorrhage is not seen. Fourth ventricle is midline. Mass in the cerebellopontine angle region is not evident. 7th and 8th nerve complexes exhibits symmetry. Globes are symmetrical with no retro-orbital mass. Increased white matter signal not seen Diffusion-weighted images demonstrate no focus of restricted diffusion Mass-effect upon the ventricular system is not identified. MRA carotid images no significant carotid stenoses. MRA brain images no large vessel occlusions Impression: Negative for acute hemorrhage, mass effect or midline shift No acute infarct No MR findings diagnostic for demyelinating disease No carotid stenoses No cerebral large vessel arterial occlusions or thrombus
[2025-03-08 04:00] VITALS: BP 118/70; PULSE 82; PULSE 86; RESP 14; TEMP 36.1; O2SAT 98
[2025-03-08] MEDS: ACETAMINOPHEN 325 MG TABLET 650 MG PO (04:46)
[2025-03-08] MEDS: HEPARIN SOD INJ 5000 UNIT/ML VIAL SC ×2 (05:06→13:04)
[2025-03-08 05:14] LABS: Basophils # (Auto) 0.0 Thou/mm3 (0.0-0.2); Basophils % (Auto) 0 % (0-2.5); Eosinophils # (Auto) 0.0 Thou/mm3 (0.0-0.5); Eosinophils % (Auto) 0 % (0-10); Hematocrit 40.9 % (36.0-46.0); Hemoglobin 14.5 g/dL (12.0-16.0); Immature Granulocytes Auto 0.06 Thou/mm3 (0.00-0.00); Lymphocytes # (Auto) 0.7 Thou/mm3 (1.0-4.8); Lymphocytes % (Auto) 6 % (10-50); Mean Corpuscular HGB Conc 35.5 g/dl (31.0-37.0); Mean Corpuscular Hemoglobin 29.2 pg (25.0-35.0); Mean Corpuscular Volume 83 fL (80-100); Monocytes # (Auto) 0.2 Thou/mm3 (0.0-0.8); Monocytes % (Auto) 2 % (0-12); Neutrophils # (Auto) 12.4 Thou/mm3 (1.8-7.7); Neutrophils % (Auto) 92 % (37-80); Nucleated Red Blood Cell # 0.00 Thou/mm3 (0.00-0.00); Nucleated Red Blood Cell % 0 /100 WBC (0); Platelet Count 267 Thou/mm3 (140-440); RDW Standard Deviation 36.7 fL (36.4-46.3); Red Blood Count 4.96 Miln/mm3 (4.00-5.20); White Blood Count 13.4 Thou/mm3 (3.6-11.0)
[2025-03-08 05:34] LABS: Glucose Estimated Average 108 mg/dL (80-131); Hemoglobin A1C 5.4 % Hgb (4.8-6.0)
[2025-03-08 05:49] LABS: Albumin, Serum 4.5 gm/dL (3.5-5.0); Anion Gap 12 (7-16); BUN/Creatinine Ratio 22 Ratio (12-20); Blood Urea Nitrogen 13 mg/dL (9-23); Calcium 9.2 mg/dL (8.3-10.6); Calcium (Corrected) 9.2 mg/dL (8.5-10.1); Carbon Dioxide 20.6 mMol/L (20.0-31.0); Cardiac Risk Estimate 3.0 RATIO (3.7-5.6); Chloride 107 mMol/L (98-107); Cholesterol 143 mg/dL (132-200); Creatinine (Component) 0.6 mg/dL (0.6-1.3); Estimated Creatinine Clearance 156.9 mL/min (>60); Glucose 160 mg/dL (74-106); HDL Cholesterol 48 mg/dL (40-60); LDL Cholesterol,Calculated 84 mg/dL (0-130); Magnesium 1.9 mg/dL (1.6-2.6); Osmolality,Calculated 282 (275-295); Phosphorous 2.8 mg/dL (2.4-5.1); Potassium 4.2 mMol/L (3.4-5.1); Sodium 140 mMol/L (136-145); Thyroid Stimulating Hormone 0.50 uIU/mL (0.55-4.78); Triglycerides 56 mg/dL (30-150); eGFR > 60 See Note
[2025-03-08 08:00] VITALS: BP 133/76; PULSE 75; RESP 19; TEMP 36.3; O2SAT 98
[2025-03-08] MEDS: ASPIRIN EC 81 MG TABEC PO (09:04)
--- NOTE | 2025-03-08 11:45 | PC.PT ---
PT eval only. Patient is I with transfers and ambulation without AD.
--- NOTE | 2025-03-08 11:49 | PCS.ST ---
No formal speech services are warranted at this time. No dysphagia. Cognitive/communication skills are baseline.
[2025-03-08 12:00] VITALS: BP 132/76; PULSE 103; PULSE 90; RESP 20; TEMP 36.6; O2SAT 99
[2025-03-08 13:35] VITALS: BP 132/76; PULSE 123
[2025-03-08] MEDS: PROPRANOLOL 10 MG TABLET PO (13:35)
--- NOTE | 2025-03-08 14:34 | ESPR_ITS ---
<Statement entered by Jf Boston MD - 03/08/25 16:16> No acute overnight events. Seen and examined at bedside and patient endorses some paresthesia on the left side upper face and head. On exam, she does have some weakness in her left lower extremity MRI was done and was negative for acute hemorrhage, mass effect, midline shift and negative for acute infarct. Echo with bubble obtained and pending read. Will follow-up on neurology recommendations evaluated by PT and no additional PT needed anticipate discharge in the next 24 to 48 hours. ----- Note reviewed and agree with care plan as documented. Please refer to the note below for further details. Plan discussed with attending physician Dr. William Boston MD PGY-2 Internal Medicine Documentation for date of: 03/08/25 Subjective Subjective Interval history: Ms. Ma seen this AM in good spirits. 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 She did not have a fall. Witnesses were present. She sat back down into her chair but then started experiencing blurry vision in her left eye, along with lacrimation. On physical examination, patient has equal strength bilaterally. Able to walk to and from the room, but has difficulty tandem walking, specifically with left leg forward. Cranial nerve exam is WNL save for decreased sensation in left face. Decreased sensation in LLE. Otherwise patient is alert, oriented x4 and GCS 15. She endorses anxiety about her symptoms and states that she has never been hospitalized before. Voiced understanding of the plan for further evaluation, including but not limited to echocardiogram and Neurology visit. CT Head negative for mass effect or fluid/bleed MRI w/ Angiography this AM negative for any abnormalities/bleeding CTA negative Exam Vital Signs Temp Pulse Resp BP Pulse Ox O2 Del Method 97.9 F 123 H 20 132/76 H 99 Room Air 03/08/25 12:00 03/08/25 13:35 03/08/25 12:00 03/08/25 13:35 03/08/25 12:00 03/08/25 12:00 Narrative Exam General: alert and oriented to self/place/year, no acute distress, able to speak full sentences; decreased sensation in L face and LLE HEENT: NC/AT, mucous membranes moist, bilateral sclera anicteric Cardiovascular: regular rate and rhythm, S1/S2 present, no murmurs appreciated Pulmonary: clear to auscultation bilaterally, no rales/rhonchi/wheezes Abdominal: soft, nontender, present bowel sounds Musculoskeletal: no peripheral edema Skin: Warm, well-perfused Objective Labs 03/08/25 04:20 03/08/25 04:20 Labs: Laboratory Results - last 24 hr 03/07/25 03/07/25 03/08/25 15:49 16:12 04:20 WBC 9.3 13.4 H D RBC 5.58 H 4.96 Hgb 15.8 14.5 Hct 45.6 40.9 MCV 82 83 MCH 28.3 29.2 MCHC 34.6 35.5 RDW Std Deviation 36.7 36.7 Plt Count 248 267 Neut % (Auto) 61 92 H Lymph % (Auto) 28 6 L [place] % (Auto) 9 2 Eos % (Auto) 1 0 Baso % (Auto) 1 0 Neut # (Auto) 5.6 12.4 H Lymph # (Auto) 2.6 0.7 L [place] # (Auto) 0.8 0.2 Eos # (Auto) 0.1 0.0 Baso # (Auto) 0.1 0.0 Immature Gran # (Auto) 0.02 H 0.06 H Absolute Nucleated RBC 0.00 0.00 Immature Gran % 0 0 Nucleated RBC % 0 0 PT 10.4 INR 1.0 APTT 29.9 Sodium 142 140 Potassium 4.5 4.2 Chloride 105 107 Carbon Dioxide 24.8 20.6 Anion Gap 12 12 BUN 10 13 Creatinine 0.7 0.6 Estim Creat Clear Calc 133.6 156.9 eGFR > 60 > 60 BUN/Creatinine Ratio 14 22 H Glucose [address] Glu mg/dL 108 Hemoglobin A1c 5.4 Calculated Osmolality 282 282 Calcium 9.8 9.2 Corrected Calcium 9.8 9.2 Phosphorus 2.8 Magnesium 2.1 1.9 Total Bilirubin 0.3 AST 31 ALT 18 Alkaline Phosphatase 83 Troponin I < 0.002 Total Protein 8.6 H Albumin 5.4 H 4.5 D Globulin 3.2 Albumin/Globulin Ratio 1.7 Triglycerides 56 Cholesterol 143 LDL Cholesterol, Calc 84 HDL Cholesterol 48 Cholesterol/HDL Ratio 3.0 L TSH 0.50 L Beta HCG, Quant < 1 Ur Collection Type Voided Urine Color Colorless A Urine Clarity Clear Urine pH 7.0 Ur Specific [place] 1.009 Urine Protein Negative Urine Glucose (UA) Negative Urine Ketones Negative Urine Blood Negative Urine Nitrite Negative Urine Bilirubin Negative Urine Urobilinogen (Auto) Negative Ur Leukocyte Esterase Negative Urine RBC 0 Urine WBC 1 Ur Squamous Epith Cells 1 Urine Bacteria Rare Ur Culture Indicated? Not Indicated Urine Opiates Screen Negative Urine Fentanyl Screen Negative Ur Barbiturates Screen Negative U Amphetamin/Meth Scrn Negative U Benzodiazepines Scrn Negative U Cocaine Metab Screen Negative U Marijuana (THC) Screen Negative HCG (Qual) Negative Quality Measures Quality Measures stroke (stroke alert called at 15:20h ) Suspected type of Stroke: Non Acute Last known well (date): 03/07/25 Last known well (time): 11:00 Tenecteplase given: Reason(s) Tenecteplase not given: Outside the time window not given Rehab services: PT evaluation ordered VTE Prophylaxis: mechanical Antithrombotic by day 2:: ordered Statin ordered: <75 y/o high intensity dose Anticoagulation ordered for A-fib or flutter (current or hx): not indicated Assessment & Plan Assessment Current Active Medications: Generic Name Dose Route Start Last Admin Trade Name Freq PRN Reason Stop Dose Admin Acetaminophen 650 mg 03/07/25 18:09 03/08/25 04:46 Acetaminophen 325 Mg Tablet PO 04/06/25 18:08 650 mg Q6H PRN Administration PAIN OR FEVER > 100.4 Aspirin 81 mg 03/07/25 19:00 03/08/25 09:04 Aspirin Ec 81 Mg Tabec PO 04/06/25 18:59 81 mg QDAY JESSI Administration Heparin Sodium (Porcine) 5,000 unit 03/07/25 22:00 03/08/25 13:04 Heparin Sod Inj 5000 Unit/Ml Vial SC 03/21/25 21:59 5,000 unit Q8HR JESSI Administration Labetalol HCl 10 mg 03/07/25 15:24 Labetalol Inj 5 Mg/Ml Vial 4 Ml IVP Q15M PRN hypertension Ondansetron HCl 4 mg 03/07/25 15:24 Ondansetron Inj 2 Mg/Ml Inj 2 Ml IVP 04/06/25 15:23 Q4HR PRN NAUSEA OR VOMITING Plan Summary:A 29-year-old female patient with past medical history reportedly of migraine, seasonal allergy came to the ED after she started to experience dizziness today at 11 in the morning. She reported that she was sitting finishing some homework and when she is stood up she started to feel dizzy associated with left-sided blurry vision. Patient was admitted for workup of stroke, complex migraine and multiple sclerosis work up. Assessment and plan #Stroke rule out #Complex migraine Patient presented with dizziness, blurry vision, foggy memory, left-sided weakness of the face and left side of the body. Vitally stable, patient does not have any chronic condition, CT angio head and neck and brain CT all were negative for any hemorrhage or mass effect. Patient denied using any street drugs. Has never had such symptoms in the past. Most likely her symptoms is due to her migraine however neurologist recommended to admit the patient for workup to rule out stroke and multiple sclerosis. It was recommended by the neurologist to give her migraine cocktail which improved her symptoms significantly except that she still has some weakness against resistance on the left side, mild blurry vision. Strength testing +4 on both sides on examination this AM 12/10; endorses decreased sensation to touch on LLE and L face Difficulty ambulating tandem with L leg No decreased hearing demonstrated Brain MRI reveals no abnormalities PT cleared, ambulating well independently Plan ? Admit patient to telemetry ? Pending recommendations by Dr. Munson ? Started the patient on aspirin 81 mg p.o. as per the neurologist's recommendation as the patient did not improve. ? Neurochecks every 4 hours ? Seizure precautions ? Physical therapy evaluation ? Echocardiogram with bubble study done, pending read and results #History of seasonal allergy Patient reported that she has multiple episodes of sneezing and runny nose secondary to her allergies. She has taken [id number] Loly Plan ? Hold home medication for now Hospital Maintenance: FEN: Regular diet after passing bedside swallow eval DVT ppx: Heparin subcu GI ppx: Not indicated IV lines: PIV Ace: None Code status: Full code Dispo: Admit to telemetry Patient seen and discussed with attending physician Dr. Romel Thomas and senior resident Dr. Jf Keller MD PGY-1 Attending Provider Attestation/Addendum I have examined the patient, reviewed labs and imaging findings, discussed the case with the resident(s), and reviewed entered orders. I agree with the plan of care as outlined in this note. Dr. William MD
--- NOTE | 2025-03-08 15:48 | PD.RESCONSUL ---
HPI Data of Consult Requesting Physician: Romel Thomas MD Admitting Provider: Romel Thomas MD Attending Provider: Romel Thomas MD Primary Care Provider: Radha Rivera PA-C Consult Narrative Reason for consult: Dizziness and left sided weakness, concern for stroke History of present illness: Patient is a 29-year-old with past medical history of migraines, gastroparesis, GERD, and seasonal allergies who presented to the ED on 03/07/2025 after she started to experience dizziness at am that morning associated with left-sided blurry vision. The dizziness was more like unsteadiness and was not spinning sensation she also reported that she felt numbness in her left sided face. She reported at that time she also became foggy and was unable to think clearly she also reported muffled hearing on the left side. After a few minutes her symptoms has improved however the dizziness and blurry vision returned again. Her symptoms continue to worsen in which she went to her physician Dr. Carson who recommended the patient to come to the ED for stroke rule out. Patient denied any deviation, denied any dysphagia, nausea or vomiting, headache, abdominal pain, diarrhea or constipation, skin rash. In the ED stroke alert was initiated, labs were all normal including normal Utox. CT head and CT head/neck were negative. Teleneuro recommended to admit the patient for concern of complex migraine however unable to rule out acute small vessel ischemic stroke or demyelinating disorder such as multiple sclerosis. Patient was given migraine cocktail including Benadryl, dexamethasone 10 mg, metoclopramide 10 mg IV push in which the patient reported improvement of her symptoms however she still has some blurry vision and numbness of her left side of the face. Neurology was consulted in the setting of stroke rule out and further management. cc:: cc: Romel Thomas MD Past Medical History Past Medical History Comments PMH COMMENT: Past Medical History: Migraines, seasonal allergies, asthma, gastroparesis, GERD Family History: Great grandmother and great grandfather had colon cancer Surgical History: None Social History: Denies history of smoking, denies current alcohol use, denies recreational drug use Current Medications:None Allergies: No known drug allergies Exam Vital Signs Temp Pulse Resp BP Pulse Ox O2 Del Method 97.9 F 123 H 20 132/76 H 99 Room Air 03/08/25 12:00 03/08/25 13:35 12/10/25 12:00 03/08/25 13:35 03/08/25 12:00 03/08/25 12:00 Narrative Exam Physical Exam General: Awake and in no acute distress. Conversational and non-toxic appearing. HEENT: Normocephalic, atraumatic, mucous membranes moist. Heart: Regular rate and rhythm, normal S1 and S2, no murmurs. Lungs: Clear to auscultation with no wheezing or crackles. Abdomen: Soft, nondistended, nontender, positive bowel sounds. ?No guarding or rebound tenderness. Neuro Stroke Exam: -Alert and oriented x3. -CN II-XII intact. -Normal visual lamas. -Normal fluent speech. -No facial droop. -Strength 5/5 bilateral arms, 5/5 cook specialty strength. -Strength 5/5 bilateral lower extremities. -Sensation reported altered along entire left side of the body including all distributions of the face, neck, arms, and legs -Normal deqlgq-eu-kygb, normal svnu-tf-jago testing. Extremities: No edema. Skin: No rash or ecchymoses. Results Labs 03/08/25 04:20 03/08/25 04:20 Labs: Short CBC 03/07/25 03/08/25 Range/Units 15:49 04:20 WBC 9.3 13.4 H D (3.6-11.0) Thou/mm3 Hgb 15.8 14.5 (12.0-16.0) g/dL Hct 45.6 40.9 (36.0-46.0) % Plt Count 248 267 (140-440) Thou/mm3 [facility] 03/07/25 03/08/25 15:49 04:20 Sodium 142 140 Potassium 4.5 4.2 Chloride 105 107 Carbon Dioxide 24.8 20.6 BUN 10 13 Creatinine 0.7 0.6 Glucose 94 160 H D Calcium 9.8 9.2 Cardiac Enzymes 03/07/25 Range/Units 15:49 Troponin I < 0.002 (0.0-0.045) ng/mL Liver Function 03/07/25 03/08/25 Range/Units 15:49 04:20 Total Bilirubin 0.3 (0.3-1.2) mg/dL AST 31 (0-34) U/L ALT 18 (10-49) U/L Alkaline Phosphatase 83 (46-116) U/L Albumin 5.4 H 4.5 D (3.5-5.0) gm/dL Urine 03/07/25 Range/Units 16:12 Urine Color Colorless A (Lt Yel-Yel) Urine Clarity Clear (Clear/Hazy) Urine pH 7.0 (5.0-7.0) Ur Specific [place] 1.009 (1.001-1.035) Urine Protein Negative (Neg - Trace) Urine Glucose (UA) Negative (Negative) Quality Measures Quality Measures stroke (stroke alert called at 15:20h ) Suspected type of Stroke: Non Acute Last known well (date): 03/07/25 Last known well (time): 11:00 Tenecteplase given: Reason(s) Tenecteplase not given: Outside the time window not given Rehab services: PT evaluation ordered and Speech Language Pathology eval ordered VTE Prophylaxis: pharmaceutical Antithrombotic by day 2:: not indicated (describe) Statin ordered: not ordered Anticoagulation ordered for A-fib or flutter (current or hx): not indicated Medications Home Medications and Allergies Allergies Allergy/AdvReac Type Severity Reaction Status Date / Time [place] Allergy Intermediate Rash Uncoded 03/07/25 15:09 Visit Medications Acetaminophen (Acetaminophen 325 Mg Tablet) 650 mg PO Q6H PRN PRN Reason: PAIN OR FEVER > 100.4 Stop: 04/06/25 18:08 Last Admin: 03/08/25 04:46 Dose: 650 mg Aspirin (Aspirin Ec 81 Mg Tabec) 81 mg PO QDAY [facility] Stop: 04/06/25 18:59 Last Admin: 03/08/25 09:04 Dose: 81 mg Heparin Sodium (Porcine) (Heparin Sod Inj 5000 Unit/Ml Vial) 5,000 unit SC Q8HR [facility] Stop: 03/21/25 21:59 Last Admin: 03/08/25 13:04 Dose: 5,000 unit Labetalol HCl (Labetalol Inj 5 Mg/Ml Vial 4 Ml) 10 mg IVP Q15M PRN PRN Reason: hypertension Ondansetron HCl (Ondansetron Inj 2 Mg/Ml Inj 2 Ml) 4 mg IVP Q4HR PRN PRN Reason: NAUSEA OR VOMITING Stop: 04/06/25 15:23 Discontinued Medications Dexamethasone Sodium Phosphate (Dexamethasone Sod Phos Inj 10 Mg/Ml Vial) 10 mg IVP X1 ONE Stop: 03/07/25 17:00 Last Admin: 03/07/25 17:56 Dose: 10 mg Diphenhydramine HCl (Diphenhydramine Inj 50 Mg/Ml Vial) 50 mg IVP X1 ONE Stop: 03/07/25 17:00 Last Admin: 03/07/25 17:53 Dose: 50 mg Sodium Chloride (Ns) 1,000 mls @ 75 mls/hr IV .[id number] JESSI Stop: 03/08/25 08:14 Last Admin: 03/07/25 19:48 Dose: 75 mls/hr Ketorolac Tromethamine (Ketorolac Inj 30 Mg/Ml Vial) 30 mg IVP X1 ONE Stop: 03/07/25 17:00 Last Admin: 03/07/25 19:11 Dose: Not Given Metoclopramide HCl (Metoclopramide Inj 5 Mg/Ml Vial 2 Ml) 10 mg IVP X1 ONE; Protocol Stop: 03/07/25 17:00 Last Admin: 03/07/25 17:58 Dose: 10 mg Propranolol HCl (Propranolol 10 Mg Tablet) 10 mg PO X1 ONE Stop: 03/08/25 13:30 Last Admin: 03/08/25 13:35 Dose: 10 mg Assessment & Plan Plan 29-year-old with past medical history of migraines, gastroparesis, GERD, and seasonal allergies who presented to the ED on 03/07/2025 after she started to experience dizziness at am that morning associated with left-sided blurry vision, patient was admitted for stroke rule out and neurology was consulted for further recommendations and management. #Complex migraine with atypical features Patient with history of migraines presents with left-sided body numbness, left vision changes, and dizziness associated with migraine headache. Patient reported that this felt different from her typical migraines, therefore she presented to her primary care who referred her to the ED and teleneuro recommended stroke rule out. All other vitals and labs have been normal. Patient likely is having complex migraine with aura which may last more than a day CT head and CT head/neck angio negative MRI/MRA brain was negative for acute infarcts or any changes -Pending echocardiogram -Patient to be discharged on 81 mg aspirin daily -Follow up with Neurology in 1-2 weeks Patient was discussed with the Neurology attending, Dr. Munson. Thank you for allowing us to participate in the care of this patient. Angelique Conley, PGY-3 Attending Provider Attestation/Addendum I personally have seen and examined the patient at the bedside and agreed with resident's findings, assessment and plan of care. presentation is most likely complicated migraine, ok to dc on ASA.
[2025-03-08 16:00] VITALS: BP 136/74; PULSE 98; PULSE 99; RESP 17; TEMP 36.6; O2SAT 98
--- NOTE | 2025-03-08 18:29 | ESDS_ITS ---
<Statement entered by Jf Boston MD - 03/08/25 18:55> Note reviewed and agree with care plan as documented. Please refer to the note below for further details. Plan discussed with attending physician Dr. William Boston MD PGY-2 Internal Medicine Planned Discharge Date 03/08/25 DS: Providers Provider Date of admission: 03/07/25 18:09 Primary care physician: Radha Rivera PA-C Admitting Provider: Romel Thomas MD Attending Provider on Admission: Romel Thomas MD Consults: 03/07/25 15:26 Consult to Neurology / Tele-Neurology Routine Comment: Consulting Provider: [facility] 03/07/25 18:11 Referral Physical Therapy Routine Comment: Physician Instructions: Referral Speech Therapy Routine Comment: 03/07/25 18:12 Consult to Neurology / Tele-Neurology Routine Comment: Consulting Provider: Larry Munson Attending Provider on DC: Abhijeet Keller MD Discharging Provider: Abhijeet Keller MD DS: Diagnosis Problem List Completed Was Problem List Reviewed/Reconciled?: Yes Hospital Course Hospital Course Hospital course: HPI: A 29-year-old female patient with past medical history reportedly of mi graine, seasonal allergy came to the ED after she started to experience dizziness today at 11 in the morning 03/07/25 She reported that she was sitting finishing some homework and when she is stood up she started to feel dizzy associated with left-sided blurry vision. She reported that her dizziness was more like unsteadiness and was not spinning sensation she also reported that she felt numbness in her left sided face. She reported at that time she also became foggy and was unable to think clearly she also reported muffled hearing on the left side. After few minutes her symptoms has improved however the dizziness and blurry vision return again and also more dizziness. Reported also at that time she started to feel numbness on the left side of her body and also weakness however she denied falling down. Her symptoms continue to worsen in which she went to her physician Dr. Carson who recommended the patient to come to the ED for stroke rule out. Patient denied any deviation, denied any dysphagia, nausea or vomiting, headache, abdominal pain, diarrhea or constipation, skin rash. ED course: At the ED patient Stroke alert was initiated, vitals all within normal limits saturating 100% on room air, her labs were normal with hemoglobin of 15.8, WBC of 9.3, electrolytes and coagulation panel within normal limits, normal kidney functions, and negative test. U tox was also negative. Stat CT scan of the head and head and neck CT angio all were negative for any acute hemorrhage or mass effect and all major blood vessels were visualized completely. Consultation to the teleneurologist recommended to admit the patient for concern of complex migraine however unable to rule out acute small vessel ischemic stroke or demyelinating disorder such as multiple sclerosis. Patient was given migraine cocktail including Benadryl, dexamethasone 10 mg, metoclopramide 10 mg IV push in which the patient reported improvement of her symptoms however she still has some blurry vision. And numbness of her left side of the face. 03/08/2025 AM: Ms. Ma seen this AM in good spirits. 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 She did not have a fall. Witnesses were present. She sat back down into her chair but then started experiencing blurry vision in her left eye, along with lacrimation. On physical examination, patient has equal strength bilaterally. Able to walk to and from the room, but has difficulty tandem walking, specifically with left leg forward. Cranial nerve exam is WNL save for decreased sensation in left face. Decreased sensation in LLE. Otherwise patient is alert, oriented x4 and GCS 15. She endorses anxiety about her symptoms and states that she has never been hospitalized before. Voiced understanding of the plan for further evaluation, including but not limited to echocardiogram and Neurology visit. CT Head negative for mass effect or fluid/bleed MRI w/ Angiography this AM negative for any abnormalities/bleeding CTA negative 03/08/25 PM: Neurology examination demonstrated no acute signs of stroke nor abnormalities. To follow up outpatient. Patient was safely discharged home with strict return precautions for any acute issues. Ms. Ma was started on aspirin 81. Given her extensive laboratory and imaging workup, and her neurological workup negative for any acute abnormalities, differential diagnosis most likely complex migraine>>>>>>stroke. Ms. Ma is to follow up outpatient in two weeks. #Stroke rule out #Complex migraine #History of seasonal allergy Discharge instructions: ? You've been started on aspirin 81 mg ? Continue taking all other home medications as prescribed ? Follow-up with PCP within 1-2 weeks of discharge ? Follow-up with neurologist, Dr. Munson, within 1-2 weeks of discharge ? If you do not have a PCP, you can follow-up at the [facility] (you can call [phone] to make an appointment) ? Return to ED if symptoms worsen or recur Status at Discharge Cognitive/behavioral status at discharge: stable at baseline Time Spent with Patient Time attestation: Total time spent providing and/or coordinating discharge services: Time spent: Greater than 30 minutes Exam Vital Signs Temp Pulse Resp BP Pulse Ox O2 Del Method 97.9 F 99 17 136/74 H 98 Room Air 03/08/25 16:00 03/08/25 16:00 03/08/25 16:00 03/08/25 16:00 03/08/25 16:00 03/08/25 16:00 Narrative Exam General: alert and oriented to self/place/year, no acute distress, able to speak full sentences HEENT: NC/AT, mucous membranes moist, bilateral sclera anicteric Cardiovascular: regular rate and rhythm, S1/S2 present, no murmurs appreciated Pulmonary: clear to auscultation bilaterally, no rales/rhonchi/wheezes Abdominal: soft, nontender, present bowel sounds Musculoskeletal: no peripheral edema Skin: Warm, well-perfused Neurological exam reveals no deficits Discharge Plan Plan Patient Disposition: HOME (Self Care) Patient condition on transfer: Stable Care Plan Goals: ? You've been started on aspirin 81 mg ? Continue taking all other home medications as prescribed ? Follow-up with PCP within 1-2 weeks of discharge ? Follow-up with neurologist, Dr. Munson, within 1-2 weeks of discharge ? If you do not have a PCP, you can follow-up at the [facility] (you can call [phone] to make an appointment) ? Return to ED if symptoms worsen or recur Prescriptions/Referrals Prescriptions/Med Rec: New aspirin 81 mg Tablet,Delayed Release (Dr/Ec) 81 mg PO QDAY 30 Days Qty: 30 0RF Referrals: Radha Rivera PA-C [Primary Care Provider] Patient/Caregiver Discharge Instructions Education Materials: What Is a TIA?, Migraines and Cluster Headaches Print Language: Marshallese Stand Alone Forms: Janine Award Info., Patient Portal Info Letter Discharge Order Discharge Orders: Discharge (Routine); Ordered 03/08/25 Ordered By: Jf Boston Quality Discharge Quality Measures none MD Attestestation MD Attestation I have examined the patient, reviewed labs and imaging findings, discussed the case with the resident(s), and reviewed entered orders. I agree with the plan of care as outlined in this note. Time Spent: [address] William MD
--- NOTE | 2025-03-11 17:38 | ESPR_ITS ---
Documentation for date of: 03/09/25 Subjective Subjective Interval history: Patient was seen in telemetry today, still has some heaviness in the left UE but able to function. Exam - Neurology Vital Signs Temp Pulse Resp BP Pulse Ox O2 Del Method 97.9 F 99 17 136/74 H 98 Room Air 03/08/25 16:00 03/08/25 16:00 03/08/25 16:00 03/08/25 16:00 03/08/25 16:00 03/08/25 16:00 Narrative Exam General: Awake and in no acute distress. Conversational and non-toxic appearing. HEENT: Normocephalic, atraumatic, mucous membranes moist. Heart: Regular rate and rhythm, normal S1 and S2, no murmurs. Lungs: Clear to auscultation with no wheezing or crackles. Abdomen: Soft, nondistended, nontender, positive bowel sounds. ?No guarding or rebound tenderness. Neuro Stroke Exam: -Alert and oriented x3. -CN II-XII intact. -Normal visual lamas. -Normal fluent speech. -No facial droop. 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 -Strength 5/5 bilateral lower extremities. -Sensation reported altered along entire left side of the body including all distributions of the face, neck, arms, and legs -Normal [id number], normal [id number] testing. Extremities: No edema. Skin: No rash or ecchymoses. Objective Labs 03/08/25 04:20 03/08/25 04:20 Assessment & Plan Additional Assessment & Plan Additional Plan: 29-year-old with past medical history of migraines, gastroparesis, GERD, and seasonal allergies who presented to the ED on 03/07/2025 after she started to experience dizziness at am that morning associated with left-sided blurry vision, patient was admitted for stroke rule out and neurology was consulted for further recommendations and management. #Complex migraine with atypical features Patient with history of migraines presents with left-sided body numbness, left vision changes, and dizziness associated with migraine headache. Patient reported that this felt different from her typical migraines, therefore she presented to her primary care who referred her to the ED and teleneuro recommended stroke rule out. All other vitals and labs have been normal. Patient likely is having complex migraine with aura which may last more than a day CT head and CT head/neck angio negative MRI/MRA brain was negative for acute infarcts or any changes -Pending echocardiogram -Patient to be discharged on 81 mg aspirin daily -Follow up with Neurology in 1-2 weeks
== END 2025-03-08 18:42 | disposition home or self-care (01) | DRG 103 ==
LOC: SERX 18:05 → SERHOLD 18:24 → S2NX 21:25
PROVIDERS: Admitting Provider Student in an Organized Health Care Education/Training Program; Emergency Provider Emergency Medicine; PCP Physician Assistant; Visit Provider Student in an Organized Health Care Education/Training Program
DX: G43.909 Migraine, unspecified, not intractable, without status migrainosus (principal); H53.2 Diplopia; R20.0 Anesthesia of skin; J30.2 Other seasonal allergic rhinitis
CPT/HCPCS: 36415; 70450; 70496; 70498; 70544; 71045; 80053; 80061; 80069; 80307; 81001; 83036; 83735; 84443; 84484; 84702; 84703; 85025; 85610; 85730; 93005; 93306; 96374; 96375; 97162; 99285; A4649; J1100; J1200; J1644; J2765; J7030; Q9967; A9270